=== PATIENT | male | born 2000 | race African-American/Black ===

== ENCOUNTER 2018-06-03 17:31 | Emergency (ER) | payer BC, MEDICARE ==
[~2018-06-03] VITALS: Ht 162.6 cm; Wt 70.0 kg
[2018-06-03] MEDS ORDERED: LIDOCAINE HCL 1% 20ML VIAL (Pyxis) INJ MC ONE (18:00)
[2018-06-03] MEDS ORDERED: LIDOCAINE HCL/PF 1% 10 MG/ML 5ML VIAL IJ NR (18:08)
[2018-06-03 18:35] VITALS: BP 120/65
== END 2018-06-03 18:47 | disposition home or self-care (01) ==
LOC: ER 17:31
DX: S01.511A Laceration without foreign body of lip, initial encounter (principal); W51.XXXA Accidental striking against or bumped into by another person, initial encounter; Y93.67 Activity, basketball; Y92.39 Other specified sports and athletic area as the place of occurrence of the external cause
CPT/HCPCS: 99283; J3490